=== PATIENT | female | born 1985 | race American Indian/Alaskan Native ===

== ENCOUNTER 2017-10-18 16:31 | Outpatient (CLI) | payer OTHER | END 2017-10-19 12:59 | disposition home or self-care (01) | LOC: OBS/DEL 16:31 | DX: O13.3 Gestational [pregnancy-induced] hypertension without significant proteinuria, third trimester (principal); O47.1 False labor at or after 37 completed weeks of gestation; Z34.03 Encounter for supervision of normal first pregnancy, third trimester ==

== ENCOUNTER 2017-11-10 12:32 | Inpatient (IN) | payer OTHER ==
[~2017-11-10] VITALS: Ht 167.6 cm; Wt 69.9 kg
[2017-11-10] MEDS ORDERED: LABETALOL HCL100 MG PO (13:20)
[2017-11-10] MEDS ORDERED: PRENATAL TABLE1 EAC1 PO (13:21)
[2017-11-12] MEDS ORDERED: LABETALOL HCL200 MG PO (08:58)
[2017-11-12] MEDS ORDERED: OBSTETRIX DHA1 EACH PO (08:59)
== END 2017-11-13 16:25 | DRG 775 ==
LOC: LDR 12:32 → OB/GYN 11-11 10:21
PROC: 4A1HXCZ Monitoring of Products of Conception, Cardiac Rate, External Approach (ICD-10-PCS; 2017-11-10)
PROC: 10E0XZZ Delivery of Products of Conception, External Approach (ICD-10-PCS; principal; 2017-11-11)
PROC: 0W8NXZZ Division of Female Perineum, External Approach (ICD-10-PCS; 2017-11-11)
PROC: 4A033R1 Measurement of Arterial Saturation, Peripheral, Percutaneous Approach (ICD-10-PCS; 2017-11-11)
DX: O42.92 Full-term premature rupture of membranes, unspecified as to length of time between rupture and onset of labor (principal); O13.3 Gestational [pregnancy-induced] hypertension without significant proteinuria, third trimester; Z3A.37 37 weeks gestation of pregnancy; Z37.0 Single live birth